=== PATIENT | female | born 1975 | race Caucasian/White ===

== ENCOUNTER 2022-08-15 14:15 | Outpatient (CLI) | payer MEDICAID ==
[2022-08-15 17:41] LABS: BASOPHILS % (AUTO) 0.6 %; EOSINOPHILS # (AUTO) 0.2 10^3/uL (0.0-0.7); EOSINOPHILS % (AUTO) 4.2 %; HCT - HEMATOCRIT 38.5 % (37.0-47.0); LYMPHOCYTES % (AUTO) 37.1 %; MEAN CORPUSCULAR HGB CONC 33.8 g/dL (32.0-36.0); MEAN CORPUSCULAR VOLUME 94.8 fL (81.0-99.0); MEAN PLATELET VOLUME 10.6 fL (7.9-10.8); MONOCYTES # (AUTO) 0.5 10^3/uL (0.0-1.0); MONOCYTES % (AUTO) 9.1 %; NEUTROPHILS # (AUTO) 2.6 10^3/uL (1.5-6.6); NEUTROPHILS % (AUTO) 48.8 %; PLT - PLATELET COUNT 271 10^3/uL (130-450); RED BLOOD COUNT 4.06 10^6/uL (4.20-5.40); WHITE BLOOD COUNT 5.3 x10^3/uL (4.8-10.8)
[2022-08-15 17:48] LABS: ALBUMIN 4.4 g/dL (3.2-5.5); ALBUMIN/GLOBULIN RATIO 1.4 (1.0-2.2); BILIRUBIN,TOTAL 0.6 mg/dL (0.2-1.0); CALCIUM 9.6 mg/dL (8.5-10.3); CREATININE 0.6 mg/dL (0.4-1.0); MAGNESIUM 2.5 mg/dL (1.7-2.8); TOTAL PROTEIN 7.6 g/dL (6.7-8.2)
== END 2022-08-15 14:30 | disposition home or self-care (01) ==
LOC: LAB.N 14:15
PROVIDERS: ATTEND Physician Assistant
DX: R00.2 Palpitations (principal)
CPT/HCPCS: 36415; 80053; 83735; 84443; 85025

== ENCOUNTER 2022-10-18 13:23 | Emergency (ER) | payer MEDICAID, OTHER ==
[2022-10-18 13:34] VITALS: BP 148/94
--- OUTSIDE RECORDS SUMMARY | 2022-10-18 13:54 | EXTERNAL MEDICAL SUMMARY RPT | Continuity of Care Document ---
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 Name Role Phone ALDO CAMACHO Unavailable Unavailable Problems date description facility 2022-09-29 16:12:25 Encounter for screen ing mammogram for malignant neoplasm of breast [facility] 2022-09-30 00:33:09 Encounter for screen ing mammogram for malignant neoplasm of breast [facility] 2022-09-30 08:19:23 Encounter for screen ing mammogram for malignant neoplasm of breast [facility] Results/Labs test date author facility value unit interpretation Result panel 1 (unknown) (no date) (unknown) (unknown) (no value) (units unknown) (unknown) (unknown) (no date) (unknown) (unknown) A. [facility] screening guidelines are issued by various medical organizations in the [place], and the guidelines do not all agree on when to begin screening mammograms and how often to repeat them. [employer] ([employer]), (units unknown) (unknown) (unknown) (no date) (unknown) (unknown) ADDITIONAL CLI NICAL HISTORY: Screening. (units unknown) (unknown) (unknown) (no date) (unknown) (unknown) B. A certain l ow percentage of breast carcinomas are occult to imaging and a negative imaging report should not necessarily preclude biopsy of a clinically suspicious lesion. (units unknown) (unknown) (unknown) (no date) (unknown) (unknown) BI-RADS ASSESS MENT CATEGORY: (1) Negative. (units unknown) (unknown) (unknown) (no date) (unknown) (unknown) BREAST COMPOSI TION: The breast tissue is extremely dense, which lowers the sensitivity of mammography. (units unknown) (unknown) (unknown) (no date) (unknown) (unknown) COMPARISON: None. (u nits unknown) (unknown) (unknown) (no date) (unknown) (unknown) Dictated by: Justo Barboza M.D. on 09/30/2022 8:35 AM PDT (units unknown) (unknown) (unknown) (no date) (unknown) (unknown) (units unknown) (unknown) (unknown) (no date) (unknown) (unknown) FINDINGS: No evidence of dominant mass lesion, suspicious microcalcifications , or other findings to suggest malignancy. (units unknown) (unknown) (unknown) (no date) (unknown) (unknown) For more information visit [email or web address]. (units unknown) (unknown) (unknown) (no date) (unknown) (unknown) IMPRESSION: (units unknown) (unknown) (unknown) (no date) (unknown) (unknown) JOSEFINA TOMOSYN SCREENING BILATERAL 09/29/2022 4:44 PM PDT (units unknown) (unknown) (unknown) (no date) (unknown) (unknown) JOSEFINA TOMOSYN SCREENING BILATERAL (units unknown) (unknown) (unknown) (no date) (unknown) (unknown) JOSEFINA TOMOSYN SCREENING BILATERAL (units unknown) (unknown) (unknown) (no date) (unknown) (unknown) Negative exam. No evidence of malignancy. (units unknown) (unknown) (unknown) (no date) (unknown) (unknown) PROVIDED CLINI ANNA INDICATIONS: Encounter for screening mammogram for malignant neoplasm of breast Z12.31: Encounter for screening mammogram for malignant neoplasm of breast (units unknown) (unknown) (unknown) (no date) (unknown) (unknown) Performing Location: [facility] (units unknown) (unknown) (unknown) (no date) (unknown) (unknown) RECOMMENDATION : Annual screening mammography. (units unknown) (unknown) (unknown) (no date) (unknown) (unknown) Result Status = Final (units unknown) (unknown) (unknown) (no date) (unknown) (unknown) Society [employer] [place] [employer] ([employer]BI) and [facility] recommend that average risk women start getting annual mammograms at age 40. Women at high risk (greater than 20% lifetime risk) should get an MRI and a mammogram every year. Yearly MRI (units unknown) (unknown) (unknown) (no date) (unknown) (unknown) TECHNIQUE: Mediolateral oblique (MLO) and craniocaudal (CC) views of both breasts were obtained utilizing digital tomosynthesis mammographic technique and 2-D synthesized images. This examination is reviewed with the benefit of computer-aided (units unknown) (unknown) (unknown) (no date) (unknown) (unknown) detection (units unknown) (unknown) (unknown) (no date) (unknown) (unknown) screening is n ot recommended for women whose lifetime risk of breast cancer is less than 15%. Patients are encouraged to discuss their risk factors with their primary care provider to determine the best individualized breast cancer screening protocol. (units unknown) (unknown) (unknown) (no date) (unknown) (unknown) software. (units unknown) (unknown)
--- NOTE | 2022-10-18 15:07 | ED Physician Documentation ---
History of Present Illness - Stated complaint Stated Complaint: INJESTED GLASS - Chief complaint Chief Complaint: General - Additonal information Additional information: Patient 47-year-old female presenting to the emergency department with chief complaint of ingested glass. Reports concerned that she could have ingested a small amount of glass from a broken Pyrex container. Reports that she was eating some chicken that she had prepared for her lunch. She noted a gritty sensation in her mouth. Looked into the Pyrex container and noted that it had some cracks in its base. Denies abdominal pain at this time. Review of Systems Constitutional: denies: Fever Eyes: denies: Loss of vision Ears: denies: Loss of hearing Nose: denies: Rhinorrhea / runny nose Throat: denies: Dental pain / toothache Cardiac: denies: Chest pain / pressure Respiratory: denies: Dyspnea GI: denies: Abdominal Pain : denies: Dysuria Skin: denies: Rash PD PAST MEDICAL HISTORY - Present Medications Home Medications: Ambulatory Orders Medication Instructions Recorded Confirmed Thyroid,Pork [Orbisonia Thyroid] 15 mg PO DAILY 10/18/22 10/18/22 - Allergies Allergies/Adverse Reactions: Allergies Allergy/AdvReac Type Severity Reaction Status Date / Time cefaclor [From Ceclor] Allergy Rash Verified 10/18/22 13:35 cephalexin [From Keflex] Allergy Rash Verified 10/18/22 13:35 Cephalosporins Allergy Rash Verified 10/18/22 13:35 fluconazole Allergy Rash Verified 10/18/22 13:35 Penicillins Allergy Rash Verified 10/18/22 13:35 Sulfa (Sulfonamide Allergy Rash Verified 10/18/22 13:35 Antibiotics) paper tape Allergy Rash Uncoded 10/18/22 13:35 vascone Allergy Rash Uncoded 10/18/22 13:35 PD ED PE NORMAL - Vitals Vital signs reviewed: Yes (wnl) - General General: Alert and oriented X 3 - HEENT HEENT: Atraumatic - Neck Neck: Supple, no meningeal sign - Cardiac Cardiac: RRR - Respiratory Respiratory: No respiratory distress - Abdomen Abdomen: Normal bowel sounds, Soft, Non tender, Non distended - Extremities Extremities: No deformity - Neuro Neuro: Alert and oriented X 3, pitch filler 2-12 intact, No motor deficit, No sensory deficit, Normal speech Results - Vitals Vitals: Vital Signs - 24 hr 10/18/22 13:27 Temperature 37 C Heart Rate 89 Respiratory 16 Rate Blood Pressure 148/94 H O2 Saturation 98 Oxygen O2 Source Room air PD Medical Decision Making - ED course Complexity details: considered differential, d/w patient ED course: Patient 47-year-old female presenting to the emergency department with concern for ingesting a small amount of Pyrex glass. Afebrile, hematin was stable. X-rays did not identify radiopaque foreign body. Overall her description of events, Namely reporting a gritty sensation while eating chicken that was held in a Pyrex container that she noted was cracked at its base is overall very low risk for complication. Will discharge at this time with return precautions. Encouraged follow-up with primary care as needed. Departure - Departure Disposition: 01 Home, Self Care Clinical Impression: Foreign body ingestion Qualifiers: Encounter type: initial encounter Qualified Code(s): T18.9XXA - Foreign body of alimentary tract, part unspecified, initial encounter Comments: Thank you for allowing us to care for you today [facility]. The x-rays taken today did not identify any glass or other radiopaque foreign body. As we discussed it does sound like a very low risk ingestion for any possible complication however if you do develop any worrisome symptoms such as intractable nausea, vomiting or worsening abdominal pain over the course of the next 20 or so hours please return to the emergency department.
--- NOTE | 2022-10-18 15:09 | XRAY Report ---
PROCEDURE: Abdomen 1 View X-Ray INDICATIONS: FB ingestion TECHNIQUE: One view of the abdomen acquired. COMPARISON: None FINDINGS: Surgical changes and devices: None. Bowel: Bowel gas pattern is normal. Soft tissues: No suspicious abdominal calcifications. Visualized solid organ contours appear normal in size. Bones: No suspicious bony lesions. IMPRESSION: No radiopaque foreign body. Reviewed by: Mehran Leggett on 10/18/2022 3:08 PM PDT Approved by: Mehran Leggett on 10/18/2022 3:08 PM PDT Station ID: [id number]
--- NOTE | 2022-10-18 15:10 | XRAY Report ---
PROCEDURE: Chest 2 View X-Ray INDICATIONS: cough TECHNIQUE: 2 views of the chest were acquired. COMPARISON: None. FINDINGS: Surgical changes and devices: None. Lungs and pleura: No pleural effusions or pneumothorax. Lungs are clear. Mediastinum: Mediastinal contours appear normal. Heart size is normal. Bones and chest wall: No suspicious bony lesions. Overlying soft tissues appear unremarkable. IMPRESSION: No radiopaque foreign body. Reviewed by: Mehran Leggett on 10/18/2022 3:08 PM PDT Approved by: Mehran Leggett on 10/18/2022 3:08 PM PDT Station ID: [id number]
== END 2022-10-18 15:41 | disposition home or self-care (01) ==
LOC: ED 13:23
DX: T18.9XXA Foreign body of alimentary tract, part unspecified, initial encounter (principal)
CPT/HCPCS: 99282; 99283